=== PATIENT | male | born 1955 | race Caucasian/White ===

== ENCOUNTER 2017-08-26 08:57 | Inpatient (IN) | payer OTHER ==
[~2017-08-26] VITALS: Ht 182.9 cm; Wt 107.0 kg
[~2017-08-26 08:57] MED LIST: AMBIEN 10 MG TA10 MG PO; ASPIRIN EC325 M1 PO; CRESTOR20 MG PO; FLOVENT HFA 4444 MCG INH; GLUCOPHAGE XR750 MG PO; LOVASTAT40 PO; NORCO 5-325 TA1 EACH PO; PREDNISONE 10 M10 M1 PO; PULMICORT0.5 MG/2 M IH; Prinzide 20-12.5 Mg PO; SEREVENT DISKU50 MCG IH; SINGULAIR 10 MG10 M1 PO; ZPAK PO; [UNRECOGNIZED DRUG - REMARK]
[2017-08-26 09:02] VITALS: BP 138/79
[2017-08-26 10:56] LABS: ABSOLUTE BASOPHILS 0.1 thou/uL (0.0-0.2); ABSOLUTE LYMPHOCYTES 1.4 thou/uL (0.8-5.3); ABSOLUTE MONOCYTES 0.7 thou/uL (0.0-1.2); ABSOLUTE NEUTROPHILS 9.8 thou/uL (1.6-8.1); BASOPHILS 1.1 %; EOSINOPHILS 0.3 %; HEMATOCRIT 41.4 % (42.0-52.0); LYMPHOCYTES 11.7 %; MCH 29.8 pg (26.0-34.0); MCHC 33.8 g/dL (28.0-37.0); MCV 88.2 fL (80.0-100.0); MONOCYTES 5.7 %; MPV 7.8 fl. (7.2-11.1); NUCLEATED RBCS 0 /100WBC; PLATELET COUNT* 238 thou/uL (150-400); POLYS 81.2 %; RBC 4.69 mil/uL (4.50-6.00); RDW-CV 12.8 % (10.5-14.5); WBC 12.1 thou/uL (4.0-11.0)
[2017-08-26 11:02] LABS: ANION GAP 7 mmol/L (7-16); BUN 21 mg/dL (7-18); CALCIUM 8.5 mg/dL (8.5-10.1); CHLORIDE 100 mmol/L (98-107); CO2 29 mmol/L (21-32); CREATININE 1.2 mg/dL (0.6-1.3); GLUCOSE 219 mg/dL (70-99); POTASSIUM 4.2 mmol/L (3.5-5.1); SODIUM 136 mmol/L (136-145)
[2017-08-26 11:12] LABS: ALBUMIN 3.7 g/dL (3.4-5.0); ALKALINE PHOSPHATASE 53 U/L (46-116); SGOT 28 U/L (15-37); SGPT 48 U/L (30-65); TOTAL BILIRUBIN 0.6 mg/dL (<0.1-1.0); TOTAL PROTEIN 6.9 g/dL (6.4-8.2); TROPONIN-I LEVEL <0.06 ng/mL (<0.06)
--- NOTE | 2017-08-26 16:22 | EKG ---
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 GONZALES : 1955 Requested By: Ramiro Blackwood Order Number: [id number] MD: Jermaine Spring Measurements Intervals [place] Rate: 90 P: 39 MI: 189 QRS: -53 QRSD: 89 T: 42 QT: 363 QTc: 444 Interpretive Statements Sinus rhythm Inferior infarct, old Compared to ECG 01/05/2010 11:14:45 Left anterior fascicular block persists Myocardial infarct finding still present Electronically Signed On 08-26-2017 16:22:06 SURVEILLANCE TECHNICIAN by Jermaine Spring [email or web address] <ELECTRONICALLY SIGNED> By: Jermaine Spring MD, FACC 08/26/17 1622 1044 1044 Jermaine Spring MD, [facility] /EPI
[2017-08-26 18:07] VITALS: BP 104/63
[2017-08-26 18:41] VITALS: BP 104/63
[2017-08-26 18:50] VITALS: BP 115/72
[2017-08-26 20:00] VITALS: BP 120/79
[2017-08-26] MEDS ORDERED: INVOKANA300 MG PO (21:38)
[2017-08-27] VITALS: BP 113/62
[2017-08-27 04:00] VITALS: BP 100/60
[2017-08-27 05:31] LABS: ABSOLUTE BASOPHILS 0.1 thou/uL (0.0-0.2); ABSOLUTE EOSINOPHILS 0.1 thou/uL (0.0-0.7); ABSOLUTE LYMPHOCYTES 2.6 thou/uL (0.8-5.3); ABSOLUTE MONOCYTES 0.9 thou/uL (0.0-1.2); ABSOLUTE NEUTROPHILS 5.9 thou/uL (1.6-8.1); EOSINOPHILS 1.1 %; HEMOGLOBIN 12.7 gm/dL (14.0-18.0); LYMPHOCYTES 27.2 %; MCH 30.3 pg (26.0-34.0); MCHC 34.4 g/dL (28.0-37.0); MCV 87.9 fL (80.0-100.0); MONOCYTES 9.7 %; NUCLEATED RBCS 0 /100WBC; PLATELET COUNT* 202 thou/uL (150-400); RBC 4.21 mil/uL (4.50-6.00); RDW-CV 13.1 % (10.5-14.5); WBC 9.7 thou/uL (4.0-11.0)
[2017-08-27 05:54] LABS: CALCIUM 8.1 mg/dL (8.5-10.1); CREATININE 1.2 mg/dL (0.6-1.3); POTASSIUM 4.1 mmol/L (3.5-5.1)
[2017-08-27 08:00] VITALS: BP 109/70
[2017-08-27 11:56] VITALS: BP 104/57
[2017-08-27 20:00] VITALS: BP 127/65
[2017-08-28 09:15] VITALS: BP 113/80
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
[2017-08-28] MEDS ORDERED: PERCOCET PO (11:17)
[2017-08-28 11:25] VITALS: BP 113/80
== END 2017-08-28 11:53 | disposition home or self-care (01) | DRG 199 ==
LOC: M.ERS 08:57 → M.2W 11:04 → M.TBA-ER 11:04 → M.2W 18:48 → M.ORTHSURG 08-27 20:36
PROVIDERS: Emergency Medicine Emergency Medical Services; ADMIT Internal Medicine
DX: S27.0XXA Traumatic pneumothorax, initial encounter (principal); J96.00 Acute respiratory failure, unspecified whether with hypoxia or hypercapnia; S22.31XA Fracture of one rib, right side, initial encounter for closed fracture; R65.10 Systemic inflammatory response syndrome (SIRS) of non-infectious origin without acute organ dysfunction; I10 Essential (primary) hypertension; E78.5 Hyperlipidemia, unspecified; J44.9 Chronic obstructive pulmonary disease, unspecified; E11.9 Type 2 diabetes mellitus without complications; Z88.0 Allergy status to penicillin; Z83.3 Family history of diabetes mellitus; Z87.891 Personal history of nicotine dependence; Z79.82 Long term (current) use of aspirin; Z79.899 Other long term (current) drug therapy; W10.8XXA Fall (on) (from) other stairs and steps, initial encounter; Y93.89 Activity, other specified; Y92.89 Other specified places as the place of occurrence of the external cause; Y99.8 Other external cause status

== ENCOUNTER → 2018-08-20 | Outpatient (CLI) | payer OTHER ==
[~2018-08-20] MED LIST changes: +INVOKANA300 MG PO; +PERCOCET PO
[2018-08-20 10:42] LABS: POTASSIUM 3.4 mmol/L (3.5-5.1)
== END ==
LOC: M.LAB 04:28
PROVIDERS: Student in an Organized Health Care Education/Training Program
DX: Z01.812 Encounter for preprocedural laboratory examination (principal); E11.9 Type 2 diabetes mellitus without complications

== ENCOUNTER → 2019-07-15 | Outpatient (CLI) | payer OTHER ==
[2019-07-15 09:48] LABS: HEMATOCRIT 37.9 % (42.0-52.0); HEMOGLOBIN 12.9 gm/dL (14.0-18.0); MCH 29.3 pg (26.0-34.0); MCHC 34.1 g/dL (28.0-37.0); MCV 85.9 fL (80.0-100.0); MPV 7.4 fl. (7.2-11.1); NUCLEATED RBCS 0 /100WBC; PLATELET COUNT* 643 thou/uL (150-400); RBC 4.41 mil/uL (4.50-6.00); RDW-CV 13.3 % (10.5-14.5); WBC 16.9 thou/uL (4.0-11.0)
[2019-07-15 10:04] LABS: CALCIUM 9.3 mg/dL (8.5-10.1); CREATININE 1.4 mg/dL (0.6-1.3)
[2019-07-15 10:09] LABS: TOTAL BILIRUBIN 0.4 mg/dL (<0.1-1.0); TOTAL PROTEIN 8.3 g/dL (6.4-8.2)
[2019-07-15 10:26] LABS: ABSOLUTE LYMPHOCYTES 2.4 thou/uL (0.8-5.3); ABSOLUTE MONOCYTES 0.5 thou/uL (0.0-1.2); METAMYELOCYTES 3 %; PLATELET ESTIMATE INCREASED
[2019-07-15 10:53] LABS: ESR (SEDRATE) 98 mm/hr (0-20)
[2019-07-16 02:06] LABS: GLYCOHEMOGLOBIN (HGB A1C) 13.3 % (4.8-5.6)
== END ==
LOC: M.WC 07:59
PROVIDERS: Family Medicine
DX: E11.621 Type 2 diabetes mellitus with foot ulcer (principal); L97.515 Non-pressure chronic ulcer of other part of right foot with muscle involvement without evidence of necrosis; I10 Essential (primary) hypertension; E78.5 Hyperlipidemia, unspecified; J44.9 Chronic obstructive pulmonary disease, unspecified; Z87.891 Personal history of nicotine dependence; Z79.84 Long term (current) use of oral hypoglycemic drugs; Z96.659 Presence of unspecified artificial knee joint

== ENCOUNTER → 2019-07-18 | Outpatient (CLI) | payer OTHER | LOC: M.MRI 11:21 | DX: E11.621 Type 2 diabetes mellitus with foot ulcer (principal); L97.519 Non-pressure chronic ulcer of other part of right foot with unspecified severity ==

== ENCOUNTER → 2019-07-22 | Outpatient (CLI) | payer OTHER | LOC: M.WC 08:00 | DX: E11.621 Type 2 diabetes mellitus with foot ulcer (principal); L97.515 Non-pressure chronic ulcer of other part of right foot with muscle involvement without evidence of necrosis; L84 Corns and callosities; E11.69 Type 2 diabetes mellitus with other specified complication; M86.271 Subacute osteomyelitis, right ankle and foot; E78.5 Hyperlipidemia, unspecified; I10 Essential (primary) hypertension; J44.9 Chronic obstructive pulmonary disease, unspecified; Z96.659 Presence of unspecified artificial knee joint; Z87.891 Personal history of nicotine dependence ==

== ENCOUNTER → 2019-07-27 | Outpatient (CLI) | payer OTHER ==
--- NOTE | 2019-07-28 11:54 | CON ---
[address] [address] CONSULTATION Name: GARETHEUGENIO Bryan [id number] Admission: 07/27/19 Attend Phys: Leonard Mao DPM Discharge: Date of : 59 Report #: [id number] THIS REPORT FOR: //name// CC: Leonard Jaquez DATE OF SERVICE: 07/27/2019 HISTORY OF PRESENT ILLNESS: The patient is a 64-year-old gentleman with diabetes mellitus, type 2. Denies significant neuropathy and apparently does not have vasculopathy either. He has chronic ulceration involving the plantar aspect of his right foot overlying the second metatarsophalangeal site and a long-standing wound. His primary physician is Dr. Trae Jaquez. [facility], had a culture with growth of Prevotella. Also an MRI within the last week showed changes with bony destruction at the second metatarsophalangeal site, possible osteomyelitis and septic arthritis. He had been on trimethoprim and sulfamethoxazole for the last couple of weeks and did have a reasonable response, overall less pain and discomfort. There is less drainage from the site. He has seen Dr. Mao for an opinion about whether surgery is indicated. ALLERGIES: LISTED TO PENICILLIN. MEDICATIONS: Include carvedilol, flecainide, Jardiance, metformin, atorvastatin, lisinopril, prednisone, Flovent, montelukast and hydrocodone and acetaminophen combination as needed. PAST MEDICAL HISTORY: Includes diabetes mellitus type 2, hypertension, hyperlipidemia, COPD with some asthmatic component, previous history of pneumothorax and rib fracture. SOCIAL HISTORY: Former smoker. FAMILY HISTORY: Noncontributory. REVIEW OF SYSTEMS: Otherwise, as noted above in history of present illness. PHYSICAL EXAMINATION: GENERAL: Pleasant, alert, and cooperative. Appears somewhat chronically ill and slightly undernourished. VITAL SIGNS: Stable. HEENT: Normocephalic. Extraocular muscles intact. NECK: Supple. LUNGS: Breathing is nonlabored. EXTREMITIES: Right foot is evaluated and he has got a draining sinus tract. There is a moderate degree of inflammation at this point [place] [address] CONSULTATION Name: EUGENIO SERVIN Room: [facility]#: [id number] Admission: 07/27/19 Attend Phys: Leonard Mao DPM Discharge: Date of : 59 Report #: [id number] significant superficial wound, in fact that draining deferred any procedure. ASSESSMENT AND PLAN: Likely chronic osteomyelitis with septic arthritis involving the second metatarsophalangeal joint where the evidence really favors a deeper infection versus superficial, he did have some response. We will extend the antibiotics pending more definitive treatment. We recommended that he undergo surgery, course of action likely result in cure versus unlikely no cure using antibiotics. He does opt to have surgery. We will likely place PICC line and plan parenteral antimicrobial therapy for around 6 weeks. Discussed with the patient in detail. <ELECTRONICALLY SIGNED> By: Zac Santillan MD 07/28/19 1154 2143 0028Joazeb Santillan MD /nt
== END ==
LOC: M.WC 07:20
DX: E11.621 Type 2 diabetes mellitus with foot ulcer (principal); L97.515 Non-pressure chronic ulcer of other part of right foot with muscle involvement without evidence of necrosis; E11.69 Type 2 diabetes mellitus with other specified complication; M86.471 Chronic osteomyelitis with draining sinus, right ankle and foot; E11.42 Type 2 diabetes mellitus with diabetic polyneuropathy; E78.5 Hyperlipidemia, unspecified; I10 Essential (primary) hypertension; J44.9 Chronic obstructive pulmonary disease, unspecified; M00.9 Pyogenic arthritis, unspecified; Z96.659 Presence of unspecified artificial knee joint; Z87.891 Personal history of nicotine dependence

== ENCOUNTER → 2019-08-03 | Day surgery (SDC) | payer OTHER ==
[~2019-08-03] MED LIST changes: +COREG6.25 MG PO; +JARDIANCE25 MG PO; +LIPITOR 20 MG T20 M1 PO; +LISINOPRIL-HCT1 EAC1 PO; +PERCOCET 10-321 EAC1 PO; +TAMBOCOR 100 M100 M1 PO; +TRAMADOL 50 MG50 MG PO; +VASCEPA1 GM PO
--- NOTE | 2019-08-03 09:47 | EKG ---
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: : 1955 Requested By: Leonard Mao Order Number: [id number] Reading MD: Derek Guillory Measurements Intervals [place] Rate: 88 P: 50 MI: 198 QRS: -67 QRSD: 101 T: 65 QT: 382 QTc: 463 Interpretive Statements Sinus rhythm LAD, consider left anterior fascicular block Consider anterior infarct Baseline wander in lead(s) II,aVF,V2 Compared to ECG 08/26/2017 10:44:57 No significant changes Electronically Signed On 08-03-2019 9:46:24 RETAIL DEPARTMENT MANAGER by Derek Guillory [email or web address] <ELECTRONICALLY SIGNED> By: Derek Guillory MD, [facility] 08/03/1944 6 6 Derek Guillory MD, [facility] /EPI
[2019-08-03 10:57] LABS: POTASSIUM 4.4 mmol/L (3.5-5.1)
--- NOTE | 2019-08-10 13:54 | OP ---
[address] [address] OPERATIVE REPORT Name: EUGENIO SERVIN [facility]#: [id number] Admission: 08/03/19 Attend Phys: Leonard Mao DPM Discharge: Date of : 59 Report #: [id number] THIS REPORT FOR: //name// CC: Leonard Jaquez DATE OF SERVICE: 08/03/2019 SURGEON: Leonard Mao DPM PREOPERATIVE DIAGNOSES: Osteomyelitis, right distal second metatarsal with septic arthritis to the second metatarsophalangeal joint. POSTOPERATIVE DIAGNOSIS: Osteomyelitis, right distal second metatarsal with septic arthritis to the second metatarsophalangeal joint. PROCEDURES: 1. Resection, right distal second metatarsal and second toe. 2. Incision and drainage, right foot. 3. Skin flap, right foot. ANESTHESIA: MAC. INJECTABLES: 30 mL of a 1:1 mixture of 0.5% Marcaine plain and 1% lidocaine plain. ESTIMATED BLOOD LOSS: Roughly 5 mL. SPECIMENS: Right distal second metatarsal and second toe. CULTURES: 1. Bone, right second metatarsal, aerobic and anaerobic. 2. Soft tissue, right foot, aerobic and anaerobic. SUTURES: 3-0 nylon. HEMOSTASIS: Right ankle pneumatic tourniquet at 275 mmHg. COMPLICATIONS: None. DESCRIPTION OF PROCEDURE: The patient brought to the OR and placed on the table supine with induction of MAC anesthesia. A well-padded ankle tourniquet was placed and a local anesthetic block given proximal to the surgical site. The extremity was prepped and draped aseptically. A #10 surgical blade was used to create a dorsal incision along the second metatarsal and then circumferentially around the second toe. Anatomic dissection utilized [place] [address] OPERATIVE REPORT Name: EUGENIO SERVIN Room: [facility]#: [id number] Admission: 08/03/19 Attend Phys: Leonard Mao DPM Discharge: Date of : 59 Report #: [id number] second toe at the MTP joint. Electrocautery was used for intraoperative hemostasis. The distal second metatarsal was discolored as well as the phalangeal base, indicative of septic arthritis. The distal second metatarsal had a fracture through the diaphysis. I dissected the tissue off the second metatarsal and transected the bone at the proximal aspect where the bone was hard with no clinical evidence of osteomyelitis. A portion of bone was sent for aerobic and anaerobic bone cultures and localized soft tissue for the same. The surgical wound was debrided of tendons and infected tissue. It was flushed with sterile saline with bacitracin and dried. The dorsal incision was sutured with 3-0 nylon. Medial skin flap was mobilized laterally and sutured to the lateral aspect of the foot. The plantar wound was enlarged and packed with Aquacel Ag. The foot was cleansed and dressed with Aquacel Ag, fluffs, ABDs, Kerlix and Estuardo bandage. Tourniquet was deflated with normal vascular return. The patient left the OR with no complications noted. <ELECTRONICALLY SIGNED> By: Leonard Mao DPM 08/10/19 1354 1540 1715Leonard Mao DPM /nt
--- NOTE | 2019-08-11 16:06 | PATH ---
[address] [address] PATHOLOGY RPT PROCEDURE Name: SUHAIL SERVIN Room: [facility].#: [id number] Admission: 08/03/19 Date of : 59 Discharge: Report #: [id number] Path Case #: [id number] [facility] Accession Number: [id number] . 01 Material submitted: . toe - RIGHT SECOND METATARSAL AND RIGHT SECOND TOE. Modifiers: right, second . 01 Clinical history: . Osteomyelitis . 02 Diagnosis: Right second metatarsal and toe: - Benign toe with extensive acute inflammation of soft tissues and osteomyelitis at proximal aspect. - Separate osteocartilaginous segment (metatarsal) with osteomyelitis at articular end and opposite/transection end free of osteomyelitis. (CAESAR:dyllan; 08/11/2019) MBAime 08/11/2019 1310 Local . 02 Electronically signed: . Raad Stubbs MD, Pathologist NPI- [id number] . 01 Gross description: . The specimen is received in formalin, labeled "Suhail Servin, right second metatarsal and toe". Received is a slightly curved amputated digit measuring 0.8 x 2.8 x 2.4 cm in greatest dimensions. The bone margin is not grossly distinct. The soft tissue margins are inked black. The nail is present displaying a yellow-ball and slightly thickened appearance. The epidermal surface is pale ball and wrinkled to slightly flaky with no grossly distinct nodules or lesions. A full-thickness longitudinal cross-section is submitted from proximal to distal aspects in cassettes A1 and A2, following decalcification. . Also received within the specimen container is an additional segment of bone measuring 4.5 x 2.2 x 1.8 cm in greatest dimensions. One margin is jagged in appearance with a slight amount of disarticulated surface identified. The opposite margin is blunt in appearance, consistent with transection, and is inked black. A full-thickness longitudinal cross-section is submitted from transected to jagged/disarticulated aspects in cassettes A3 and A4, following decalcification. (CAA; 08/04/2019) QAC/QAC 08/11/2019 1304 Local . 02 Pathologist provided ICD-10: M79.9, M86.171 . 02 [place] [address] PATHOLOGY RPT PROCEDURE Name: SUHAIL SERVIN Room: [facility]#: [id number] Admission: 08/03/19 Date of : 59 Discharge: Report #: [id number] Path Case #: [id number] CPT . 094257, 374111 Specimen Comment: A courtesy copy of this report has been sent to [phone], [phone] Specimen Comment: [id number] Specimen Comment: Report sent to / DR GONZALEZ Performed at: 01 [facility] [address], [place], [place] [id number] MD Trae Greenwood MD Phone: [phone] Performed at: [address] [facility] [address] [place]AL[place]hillon [id number] MD Raad Stubbs MD Phone: [phone]
== END | disposition home or self-care (01) ==
LOC: M.SUR 06:21
PROVIDERS: Anesthesiology
DX: M86.171 Other acute osteomyelitis, right ankle and foot (principal); B95.0 Streptococcus, group A, as the cause of diseases classified elsewhere; B95.2 Enterococcus as the cause of diseases classified elsewhere; M79.9 Soft tissue disorder, unspecified; M00.9 Pyogenic arthritis, unspecified; I10 Essential (primary) hypertension; E78.5 Hyperlipidemia, unspecified; J45.909 Unspecified asthma, uncomplicated; E11.9 Type 2 diabetes mellitus without complications; Z98.890 Other specified postprocedural states; Z79.899 Other long term (current) drug therapy; Z88.0 Allergy status to penicillin; Z79.82 Long term (current) use of aspirin

== ENCOUNTER → 2019-08-10 | Outpatient (CLI) | payer OTHER ==
--- NOTE | 2019-08-11 11:33 | CON ---
[address] [address] CONSULTATION Name: GARETHEUGENIO Irvin Room: [facility] Jossy.#: [id number] Admission: 08/10/19 Attend Phys: Leonard Mao DPM Discharge: Date of : 59 Report #: [id number] THIS REPORT FOR: //name// CC: Leonard Jaquez DATE OF SERVICE: 08/10/2019 INFECTIOUS DISEASE CONSULTATION FOLLOWUP The patient is seen in the outpatient wound care center, [place]. REASON FOR EVALUATION: Followup for osteomyelitis involving the right second digit as well as metatarsal. HISTORY OF PRESENT ILLNESS: He is post-amputation of the same. He has been on antimicrobial therapy empirically. Generally, he has been doing fairly well. The wound itself is minimally inflamed at this point. It is closed primarily across the incision site. However, there is a plantar ulcer that persists. It is fairly bland appearing. Review of cultures that are now available showed group A strep in the tissue culture, Enterococcus in the bone. He has been on ceftriaxone. ASSESSMENT AND PLAN: Osteomyelitis. I suspect we will await path report. We will adjust antimicrobial therapy to include vancomycin given the fact that he has got a PENICILLIN ALLERGY as well to treat the enterococcus of the deeper culture. We will get weekly labs as prescribed. We will see him back on a weekly basis at the [facility]. <ELECTRONICALLY SIGNED> By: Zac Santillan MD 08/11/19 1133 0852 0941Zac Santillan MD /nicolas
== END ==
LOC: M.WC 04:32
DX: T87.89 Other complications of amputation stump (principal); E11.69 Type 2 diabetes mellitus with other specified complication; M86.471 Chronic osteomyelitis with draining sinus, right ankle and foot; E11.42 Type 2 diabetes mellitus with diabetic polyneuropathy; E78.5 Hyperlipidemia, unspecified; I10 Essential (primary) hypertension; J44.9 Chronic obstructive pulmonary disease, unspecified; Z96.659 Presence of unspecified artificial knee joint; Z87.891 Personal history of nicotine dependence; Y83.5 Amputation of limb(s) as the cause of abnormal reaction of the patient, or of later complication, without mention of misadventure at the time of the procedure

== ENCOUNTER → 2019-08-17 | Outpatient (CLI) | payer OTHER | LOC: M.WC 02:24 | DX: T87.89 Other complications of amputation stump (principal); E11.621 Type 2 diabetes mellitus with foot ulcer; L97.512 Non-pressure chronic ulcer of other part of right foot with fat layer exposed; E11.69 Type 2 diabetes mellitus with other specified complication; M86.471 Chronic osteomyelitis with draining sinus, right ankle and foot; E11.40 Type 2 diabetes mellitus with diabetic neuropathy, unspecified; E78.5 Hyperlipidemia, unspecified; J44.9 Chronic obstructive pulmonary disease, unspecified; I10 Essential (primary) hypertension; Z96.659 Presence of unspecified artificial knee joint; Z87.891 Personal history of nicotine dependence; Y83.5 Amputation of limb(s) as the cause of abnormal reaction of the patient, or of later complication, without mention of misadventure at the time of the procedure ==

== ENCOUNTER → 2019-08-24 | Outpatient (CLI) | payer OTHER ==
--- NOTE | 2019-08-25 11:48 | CON ---
[address] [address] CONSULTATION Name: EUGENIO SERVIN Room: [facility].#: [id number] Admission: 08/24/19 Attend Phys: Leonard Mao DPM Discharge: Date of : 59 Report #: [id number] THIS REPORT FOR: //name// cc: Trae Jaquez Russell J. DO ~ THIS REPORT FOR: //name// CC: Leonard Jaquez DATE OF SERVICE: 08/24/2019 INFECTIOUS DISEASE CONSULTATION AND FOLLOWUP ATTENDING PHYSICIAN: Leonard Mao DPM HISTORY OF PRESENT ILLNESS: He is here for followup of chronic osteomyelitis involving his right second digit. He is post osteoectomy including the toe. He has completed roughly 3 weeks of therapy. Generally, he has been doing well. The wound itself looks good. Sutures in place. There is very little inflammation noted superficially. He does have a plantar ulcer as well that is roughly 1 cm in depth. Again, overall dimensions have decreased as well. ASSESSMENT AND PLAN: Chronic osteomyelitis. At this point, we would extend the antibiotics. He is on vancomycin. HE HAS A HISTORY OF PENICILLIN ALLERGY. He has got Enterococcus isolated from the bone culture. We will plan a minimum of 4, up to 6 weeks of antimicrobial therapy. We will see him back in 1 week to reevaluate. Continue weekly labs. Optimize his nutrition, off load and wound care as prescribed. <ELECTRONICALLY SIGNED> By: Zac Santillan MD 08/25/19 1148 0917 0940Joazeb Santillan MD /nt
== END ==
LOC: M.WC 01:34
DX: T87.89 Other complications of amputation stump (principal); E11.621 Type 2 diabetes mellitus with foot ulcer; L97.512 Non-pressure chronic ulcer of other part of right foot with fat layer exposed; E11.69 Type 2 diabetes mellitus with other specified complication; M86.471 Chronic osteomyelitis with draining sinus, right ankle and foot; E11.40 Type 2 diabetes mellitus with diabetic neuropathy, unspecified; E78.5 Hyperlipidemia, unspecified; J44.9 Chronic obstructive pulmonary disease, unspecified; I10 Essential (primary) hypertension; Z96.659 Presence of unspecified artificial knee joint; Z87.891 Personal history of nicotine dependence; Y83.5 Amputation of limb(s) as the cause of abnormal reaction of the patient, or of later complication, without mention of misadventure at the time of the procedure

== ENCOUNTER → 2019-08-31 | Outpatient (CLI) | payer OTHER ==
--- NOTE | 2019-09-01 12:23 | CON ---
[address] [address] CONSULTATION Name: EUGENIO SERVIN Room: [facility].R.#: [id number] Admission: 08/31/19 Attend Phys: Leonard Mao DPM Discharge: Date of : 59 Report #: [id number] THIS REPORT FOR: //name// cc: Trae Jaquez Russell J. DO ~ THIS REPORT FOR: //name// CC: Leonard Jaquez DATE OF SERVICE: 08/31/2019 INFECTIOUS DISEASE CONSULTATION FOLLOWUP ATTENDING PHYSICIAN: Leonard Mao DPM HISTORY OF PRESENT ILLNESS: He returns today in followup, chronic osteomyelitis involving the right foot. He is status post second toe amputation, completed roughly 4 weeks of treatment. Generally, he denies any significant ill feeling or any other systemic or localizing signs or symptoms involving the operative site. The site itself shows decreased inflammation. Does have a plantar ulcer as well. This was evaluated and probed per Dr. Mao roughly 2 cm deep, although there was no bone exposed. He did remove the sutures along the incision line and that it was oriented in a longitudinal fashion. ASSESSMENT AND PLAN: Chronic osteomyelitis. At this point, we would extend the antibiotics for an additional 1-2 weeks. We will see him back at weekly intervals. Certainly is in agreement could potentially discontinue antibiotics as early as next week. We will continue weekly labs as well. Further optimize nutrition, off load the site. <ELECTRONICALLY SIGNED> By: Zac Santillan MD 09/01/19 1223 1547 0020Joseliane Santillan MD /nt
== END ==
LOC: M.WC 00:20
DX: T87.89 Other complications of amputation stump (principal); E11.621 Type 2 diabetes mellitus with foot ulcer; L97.511 Non-pressure chronic ulcer of other part of right foot limited to breakdown of skin; L84 Corns and callosities; E11.69 Type 2 diabetes mellitus with other specified complication; M86.271 Subacute osteomyelitis, right ankle and foot; E11.42 Type 2 diabetes mellitus with diabetic polyneuropathy; E78.5 Hyperlipidemia, unspecified; J44.9 Chronic obstructive pulmonary disease, unspecified; I10 Essential (primary) hypertension; Z96.659 Presence of unspecified artificial knee joint; Z87.891 Personal history of nicotine dependence; Y83.5 Amputation of limb(s) as the cause of abnormal reaction of the patient, or of later complication, without mention of misadventure at the time of the procedure

== ENCOUNTER → 2019-09-07 | Outpatient (CLI) | payer OTHER ==
--- NOTE | 2019-09-08 12:41 | CON ---
[address] [address] CONSULTATION Name: EUGENIO SERVIN Room: [facility].#: [id number] Admission: 09/07/19 Attend Phys: Leonard Mao DPM Discharge: Date of : 59 Report #: [id number] THIS REPORT FOR: //name// cc: Trae Jaquez Russell J. DO ~ THIS REPORT FOR: //name// CC: Leonard Jaquez DATE OF SERVICE: 09/07/2019 ATTENDING PHYSICIAN: Leonard Mao D.P.M. HISTORY OF PRESENT ILLNESS: He is here for followup of chronic osteomyelitis with ongoing wound involving the plantar aspect of his right foot. He did undergo a second toe amputation with partial osteoectomy involving the metatarsal at that site roughly 5 weeks ago. He has been on parenteral therapy since that time, generally been doing well. He denies any significant systemic illness nor does he have any localizing signs or symptoms. There is scant amount of drainage noted. He is not apparently having any adverse drug effects. Chronic osteomyelitis. At this point, I think it is reasonable to transition, start on some oral therapy with cephalexin. It is notable he has reported history of HYPERSENSITIVITY TO PENICILLIN WITH RASH over 30 years ago. We will plan on additional 2 weeks. We will see him back in 1 week. At that point, if he is doing well, we will likely remove his PICC line. <ELECTRONICALLY SIGNED> By: Zac Santillan MD 09/08/19 1241 0843 0911Joseliane Santillan MD /nt
== END ==
LOC: M.WC 02:13
DX: T87.89 Other complications of amputation stump (principal); E11.621 Type 2 diabetes mellitus with foot ulcer; L97.512 Non-pressure chronic ulcer of other part of right foot with fat layer exposed; E11.69 Type 2 diabetes mellitus with other specified complication; M86.471 Chronic osteomyelitis with draining sinus, right ankle and foot; E11.42 Type 2 diabetes mellitus with diabetic polyneuropathy; E78.5 Hyperlipidemia, unspecified; I10 Essential (primary) hypertension; J44.9 Chronic obstructive pulmonary disease, unspecified; Z96.659 Presence of unspecified artificial knee joint; Z87.891 Personal history of nicotine dependence; Y83.5 Amputation of limb(s) as the cause of abnormal reaction of the patient, or of later complication, without mention of misadventure at the time of the procedure

== ENCOUNTER → 2019-09-14 | Outpatient (CLI) | payer OTHER ==
--- NOTE | 2019-09-15 12:34 | CON ---
[address] [address] CONSULTATION Name: EUGENIO SERVIN Room: [facility].#: [id number] Admission: 09/14/19 Attend Phys: Leonard Mao DPM Discharge: Date of : 59 Report #: [id number] THIS REPORT FOR: //name// cc: Trae Jaquez Russell J. DO ~ THIS REPORT FOR: //name// CC: Leonard Jaquez DATE OF SERVICE: 09/14/2019 INFECTIOUS DISEASE CONSULTATION FOLLOWUP ATTENDING PHYSICIAN: Leonard Mao DPM HISTORY OF PRESENT ILLNESS: He is here for followup right foot chronic osteomyelitis post-osteoectomy. He has been on extended period of antibiotics. He returns today in followup, was found to be healed. PHYSICAL EXAMINATION: On examination, there is very little inflammation. There is no drainage. There is no significant palpable pain or discomfort. ASSESSMENT AND PLAN: Chronic osteomyelitis. At this point, would not extend the antibiotics. We will be available as needed. He is to be fitted for special orthotics per Dr. Mao due to the change in the overall confirmation of his foot, post-amputation. <ELECTRONICALLY SIGNED> By: Zac Santillan MD 09/15/19 1234 [id number] [id number] Juan Santillan MD /nt
== END ==
LOC: M.WC 04:25
DX: T81.89XD Other complications of procedures, not elsewhere classified, subsequent encounter (principal); E11.621 Type 2 diabetes mellitus with foot ulcer; L97.518 Non-pressure chronic ulcer of other part of right foot with other specified severity; E11.69 Type 2 diabetes mellitus with other specified complication; M86.471 Chronic osteomyelitis with draining sinus, right ankle and foot; E11.40 Type 2 diabetes mellitus with diabetic neuropathy, unspecified; E78.5 Hyperlipidemia, unspecified; I10 Essential (primary) hypertension; J44.9 Chronic obstructive pulmonary disease, unspecified; Z96.659 Presence of unspecified artificial knee joint; Z87.891 Personal history of nicotine dependence; Y83.8 Other surgical procedures as the cause of abnormal reaction of the patient, or of later complication, without mention of misadventure at the time of the procedure

== ENCOUNTER → 2020-08-28 | Outpatient (CLI) | payer OTHER | LOC: M.LAB 10:52 | PROVIDERS: ATTEND Podiatrist Foot & Ankle Surgery | DX: Z01.812 Encounter for preprocedural laboratory examination (principal); Z20.822 Contact with and (suspected) exposure to COVID-19; M86.9 Osteomyelitis, unspecified ==

== ENCOUNTER 2020-08-31 19:54 | Emergency (ER) | payer OTHER ==
[~2020-08-31] VITALS: Ht 182.9 cm; Wt 97.5 kg
[2020-08-31 21:35] VITALS: BP 112/52
== END 2020-08-31 21:35 | disposition home or self-care (01) ==
LOC: M.ERS 19:54
DX: M96.830 Postprocedural hemorrhage of a musculoskeletal structure following a musculoskeletal system procedure (principal); Z48.01 Encounter for change or removal of surgical wound dressing; J45.909 Unspecified asthma, uncomplicated; I10 Essential (primary) hypertension; E78.5 Hyperlipidemia, unspecified; E11.9 Type 2 diabetes mellitus without complications; Z88.0 Allergy status to penicillin; Y83.8 Other surgical procedures as the cause of abnormal reaction of the patient, or of later complication, without mention of misadventure at the time of the procedure; Y82.8 Other medical devices associated with adverse incidents

== ENCOUNTER → 2020-08-31 | Day surgery (SDC) | payer OTHER ==
[~2020-08-31] MED LIST changes: +PERCOCET 5-3251 EACH PO
--- NOTE | 2020-08-31 13:54 | NUR ---
RIGHT BSILIC VESSEL ACCESSED FOR 4 IT[place] SINGLE LUMEN PICC. LINE PRE-TRIMMED TO 47CM AND ADVANCED TO THE ZERO CHANDRA WITH NO RESISTANCE MET. UPPER ARM CIRCUMFERENCE ABOVE INSERTION SITE= 12". SHERLOCK MAGNET AND 3CG CONFIRMATION OF TIP TERMINATION AT THE CAVOATRIAL JUNCTION APPRECIATED. GUIDEWIRE REMOVED, LINE FLUSHED AND INSERTION SITE DRESSED. REPORT GIVEN TO MARK LU.
[2020-08-31 14:04] LABS: HEMATOCRIT 36.3 % (42.0-52.0); MCHC 33.2 g/dL (28.0-37.0); MCV 84.3 fL (80.0-100.0); MPV 7.5 fl. (7.2-11.1); RBC 4.3 mil/uL (4.50-6.00); RDW-CV 13.2 % (10.5-14.5); WBC 10.3 thou/uL (4.0-11.0)
[2020-08-31 14:07] LABS: CREATININE 0.9 mg/dL (0.6-1.3); POTASSIUM 3.1 mmol/L (3.5-5.1)
--- NOTE | 2020-09-05 12:50 | OP ---
[address] [address] OPERATIVE REPORT Name: EUGENIO SERVIN Room: [facility]#: [id number] Admission: 08/31/20 Attend Phys: Leonard Mao DPM Discharge: Date of : 59 Report #: [id number] THIS REPORT FOR: cc: Trae Jaquez Russell J. DO ~ Hanon, Daniel R. DPM DATE OF SERVICE: 08/31/2020 SURGEON: Leonard Mao DPM PREOPERATIVE DIAGNOSIS: Osteomyelitis, right distal third metatarsal with nonhealing ulceration. POSTOPERATIVE DIAGNOSIS: Osteomyelitis, right distal third metatarsal with nonhealing ulceration. PROCEDURES: 1. Resection, right distal third metatarsal and third toe. 2. Incision and drainage, right foot. 3. Pedicled skin flap, right foot. ANESTHESIA: MAC. INJECTABLES: A 30 mL of 0.5% Marcaine plain. TOURNIQUET: Right ankle pneumatic tourniquet at 275 mmHg. SUTURES: 3-0 nylon. ESTIMATED BLOOD LOSS: Roughly 5 mL. SPECIMENS: Right distal third metatarsal and third toe. CULTURES: 1. Bone, right third metatarsal, aerobic/anaerobic. 2. Soft tissue, right foot, aerobic/anaerobic. COMPLICATIONS: None. DESCRIPTION OF PROCEDURE: The patient was brought to the OR and the surgery was performed in the surgical bed. A well-padded right ankle pneumatic tourniquet was placed and a local anesthetic block was performed. The extremity was exsanguinated with inflation of the tourniquet. A #10 blade was used to create a dorsal linear incision over the right distal third metatarsal and then circumferentially around the third toe. The third [place] [address] OPERATIVE REPORT Name: EUGENIO SERVIN Room: [facility]#: [id number] Admission: 08/31/20 Attend Phys: Leonard Mao DPM Discharge: Date of : 59 Report #: [id number] MTP joint and there was a fracture through the distal neck of the third metatarsal with fragmentation of the metatarsal head and discoloration consistent with osteomyelitis. There was a small amount of purulence, surrounding the metatarsal head, roughly 0.5 mL. The tissue around the metatarsal was yellow/brownish consistent with chronic infection. I mobilized the metatarsal from the surrounding soft tissue using a dissection and electrocautery. The metatarsal was transected at the proximal diaphysis and removed from the wound. The wound was thoroughly debrided of inflamed and infected tissue including the extensor and flexor tendons. Electrocautery was utilized throughout the procedure for hemostasis. The skin was remodeled dorsal and plantarly to facilitate closure. The wound was flushed with sterile saline, dried and a plantar medial skin flap was mobilized plantar and dorsally, laterally and sutured with 3-0 nylon in simple interrupted fashion. The tourniquet was deflated with normal vascular return. The foot was cleansed and sterile compressive bandage with Aquacel Ag, fluffs, ABDs, Kerlix and Estuardo bandage were applied. I sent bone and soft tissue for aerobic and anaerobic culture. I sent the distal third metatarsal and toe for surgical pathology. The patient left the OR with no pain or complications noted. <ELECTRONICALLY SIGNED> By: Leonard Mao DPM 09/05/20 1250 0732 [id number] Mao DPM /nt
--- NOTE | 2020-09-05 18:06 | PATH ---
[address] [address] PATHOLOGY RPT PROCEDURE Name: GARETHSUHAIL Bryan Room: [facility].#: [id number] Admission: 08/31/20 Date of : 59 Discharge: Report #: [id number] Path Case #: [id number] [facility] Accession Number: [id number] . 01 Material submitted: . toe - RIGHT THIRD TOE AND 3RD METATARSAL. Modifiers: right, third, third . 01 Clinical history: . OSTEOMYELITIS RIGHT FOOT . 02 Diagnosis: Right third toe and third metatarsal: - Benign toe with nonspecific acute inflammation of soft tissues and prominent osteomyelitis of underlying phalangeal bones. - Separate segment of bone with prominent osteomyelitis at jagged end and with osteoblastic activity of opposite (transection) end but no kalyan osteomyelitis. (CAESAR:pit 09/05/2020) QTP 09/05/2020 1605 Local . 02 Electronically signed: . Raad Stubbs MD, Pathologist NPI- [id number] . 01 Gross description: . The specimen is received in formalin, labeled "Suhail Servin, right third toe and third metatarsal". Received is an amputated digit measuring 5.6 x 2.7 x 2.4 cm and separately submitted metatarsal measuring 3.5 x 2.1 x 2.0 cm. The bone margin of the toe is jagged in appearance. The bone and soft tissue margins are inked black. The nail is present displaying a pale ball and grossly unremarkable appearance. The epidermal surface is pale ball and slightly flaky in appearance with no grossly distinct nodules or lesions. A full-thickness longitudinal cross-section is submitted from proximal to distal aspects in cassettes A1 through A3, following decalcification. . The metatarsal displays one jagged margin and one blunt, transected margin. The transected margin is inked black. A full thickness longitudinal cross-section is submitted from transected to jagged aspects in cassettes A4 and A5, following decalcification. (CAA; 09/04/2020) QAC/QAC 09/04/2020 1235 Local . 02 Pathologist provided ICD-10: M86.8X7 . 02 CPT . 771344, [id number] [place] [address] PATHOLOGY RPT PROCEDURE Name: SUHAIL SERVIN Room: [facility]#: [id number] Admission: 08/31/20 Date of : 59 Discharge: Report #: [id number] Path Case #: [id number] Specimen Comment: Report sent to Performed at: [address], [place], [place] [id number] MD Jony Mccullough MD Phone: [phone] Performed at: 02 [facility] [address], [place], [place] [id number] MD Raad Stubbs MD Phone: [phone]
== END | disposition home or self-care (01) ==
LOC: M.SUR
PROVIDERS: ATTEND Podiatrist Foot & Ankle Surgery
DX: M86.8X7 Other osteomyelitis, ankle and foot (principal); L97.519 Non-pressure chronic ulcer of other part of right foot with unspecified severity; I10 Essential (primary) hypertension; E78.5 Hyperlipidemia, unspecified; J45.909 Unspecified asthma, uncomplicated; E11.9 Type 2 diabetes mellitus without complications; Z98.890 Other specified postprocedural states; Z79.899 Other long term (current) drug therapy; Z88.0 Allergy status to penicillin